=== PATIENT | female | born 1970 | race Caucasian/White ===

== ENCOUNTER 2019-05-23 12:16 | Day surgery (SDC) | payer BC ==
[2019-05-23 13:29] LABS: ADD MAN DIFF? NO
[2019-05-23 13:33] LABS: WHITE BLOOD COUNT 7.7 10^3/ul (4.8-10.8)
[2019-05-23 13:33] LABS: BASOPHILS % 0.3 % (0.0-2.0); EOSINOPHILS % 0.5 % (0.0-7.0); HEMATOCRIT 42.9 % (37.0-47.0); HEMOGLOBIN 13.9 g/dl (12.0-16.0); MEAN CORPUSCULAR HEMOGLOBIN 29.3 pg (29.0-33.0); MEAN CORPUSCULAR HGB CONC 32.4 g/dl (32.0-37.0); MEAN CORPUSCULAR VOLUME 90.5 fl (82.0-101.0); MEAN PLATELET VOLUME 9.8 fl (7.4-10.4); MONOCYTE # 0.5 10^3/ul (0.3-0.9); MONOCYTES % 6.2 % (0.0-11.0); NEUTROPHIL # 5.2 10^3/ul (1.6-7.5); NEUTROPHILS % 66.7 % (39.0-77.0); PLATELET COUNT 219 10^3/UL (140-415); RED BLOOD COUNT 4.74 10^6/ul (4.20-5.40); RED CELL DISTRIBUTION WIDTH 12.3 % (11.5-14.5)
[2019-05-23 14:13] LABS: ANION GAP 6 (5-13); BLOOD UREA NITROGEN 10 mg/dl (7-20); CALCIUM 9.1 mg/dl (8.4-10.2); CARBON DIOXIDE 26 mmol/L (21-31); CHLORIDE 106 mmol/L (97-110); CREATININE 0.77 mg/dl (0.44-1.00); Estimated GFR > 60 mL/min (>60); GLUCOSE 84 mg/dl (70-220); POTASSIUM 4.3 mmol/L (3.5-5.1); SODIUM 138 mmol/L (135-144)
[2019-05-23] MEDS: HEPARIN 5,000 UNIT/1 ML VIAL SC ×2 (15:00→21:03)
[2019-05-23] MEDS: LACTATED RINGER'S 1,000 ML IV ×2 (15:35→18:50)
[2019-05-23] MEDS ORDERED: MIDAZOLAM 1 MG/ML 2 ML INJ (15:38)
[2019-05-23] MEDS ORDERED: morphine SULFATE/PF (10 MG/10 ML) INJ (15:39)
[2019-05-23] MEDS ORDERED: FENTAnyl 50 MCG/ML VIAL (15:39)
[2019-05-23 15:41] LABS: HEMATOCRIT 44.6 % (37.0-47.0); HEMOGLOBIN 14.4 g/dl (12.0-16.0)
[2019-05-23] MEDS: CEFAZOLIN 2 GM/50 ML (PMX) 50 ML IVPB (15:51)
[2019-05-23 16:01] LABS: ANION GAP 5 (5-13); BLOOD UREA NITROGEN 9 mg/dl (7-20); CARBON DIOXIDE 26 mmol/L (21-31); CHLORIDE 106 mmol/L (97-110); CREATININE 0.76 mg/dl (0.44-1.00); Estimated GFR > 60 mL/min (>60); GLUCOSE 79 mg/dl (70-220); POTASSIUM 4.4 mmol/L (3.5-5.1); SODIUM 137 mmol/L (135-144)
[2019-05-23] MEDS ORDERED: BUPIVACAINE 0.25%/EPI (SDV) 10 ML INJ (16:53)
[2019-05-23] MEDS: BUPIVACAINE 0.25%/EPI (SDV) 10 ML INJ (17:44)
[2019-05-23] MEDS ORDERED: FUROSEMIDE 20 MG INJ (18:00)
[2019-05-23 18:06] LABS: INR 0.89; PROTIME 12.1 Sec (11.9-14.9); PT RATIO 0.9
[2019-05-23] MEDS ORDERED: ROCURONIUM 50 MG INJ (18:13)
[2019-05-23] MEDS ORDERED: NEOSTIGMINE 3 MG/3 ML SYRINGE (18:13)
[2019-05-23] MEDS ORDERED: PROPOFOL 20 ML (18:13)
[2019-05-23] MEDS ORDERED: LIDOCAINE 2% (SDV) 5 ML INJ (18:13)
[2019-05-23] MEDS ORDERED: GLYCOPYRROLATE 0.4 MG INJ (18:14)
[2019-05-23] MEDS ORDERED: ONDANSETRON 4 MG INJ (18:14)
[2019-05-23] MEDS ORDERED: CEFAZOLIN 1 GM INJ (18:18)
[2019-05-23 18:24] LABS: PARTIAL THROMBOPLASTIN TIME 27.7 Sec (23.0-35.0)
[2019-05-23] MEDS ORDERED: ACETAMINOPHEN 325 MG TAB PO (19:00)
[2019-05-23] MEDS ORDERED: FENTAnyl 50 MCG/ML VIAL IV (19:00)
[2019-05-23] MEDS ORDERED: MEPERIDINE 25 MG INJ IV (19:00)
[2019-05-23] MEDS ORDERED: DIPHENHYDRAMINE 50 MG INJ IV (19:00)
[2019-05-23] MEDS ORDERED: HYDROmorphONE 1 MG/5 ML IV SYRINGE IV ×2 (19:00)
[2019-05-23] MEDS ORDERED: ONDANSETRON 4 MG INJ IV (19:00)
[2019-05-23] MEDS ORDERED: METOCLOPRAMIDE 10 MG INJ IV (19:00)
[2019-05-23] MEDS: OXYCODONE/ACETAMINOPHEN (5/325) TAB PO (22:23)
[2019-05-24] MEDS: ONDANSETRON 4 MG INJ IV ×2 (01:53→07:47)
[2019-05-24] MEDS: LACTATED RINGER'S 1,000 ML IV (05:48)
[2019-05-24 09:19] LABS: ADD UMIC YES; UR ASCORBIC ACID NEGATIVE (NEGATIVE); UR BILIRUBIN (Dip) NEGATIVE (NEGATIVE); UR BLOOD (Dip) 2+ mg/dL (NEGATIVE); UR CLARITY CLEAR (CLEAR); UR COLOR YELLOW (YELLOW); UR GLUCOSE (Dip) NEGATIVE (NEGATIVE); UR KETONES (Dip) 1+ mg/dL (NEGATIVE); UR LEUKOCYTE ESTERASE (Dip) NEGATIVE Leu/ul (NEGATIVE); UR MUCUS FEW /HPF (NONE SEEN); UR NITRITE (Dip) NEGATIVE (NEGATIVE); UR RBC 56 /HPF (0-5); UR SPECIFIC GRAVITY (Dip) 1.024 (1.003-1.030); UR TOTAL PROTEIN (Dip) NEGATIVE (NEGATIVE); UR UROBILINOGEN (Dip) NEGATIVE (NEGATIVE); UR WBC 4 /HPF (0-5)
[2019-05-24 11:19] LABS: ADD MAN DIFF? NO
[2019-05-24 11:25] LABS: WHITE BLOOD COUNT 11.2 10^3/ul (4.8-10.8)
[2019-05-24 11:25] LABS: BASOPHILS % 0.2 % (0.0-2.0); EOSINOPHILS % 0.2 % (0.0-7.0); HEMATOCRIT 39.9 % (37.0-47.0); HEMOGLOBIN 12.8 g/dl (12.0-16.0); LYMPHOCYTES # 1.9 10^3/ul (0.8-2.9); MEAN CORPUSCULAR HEMOGLOBIN 29.5 pg (29.0-33.0); MEAN CORPUSCULAR HGB CONC 32.1 g/dl (32.0-37.0); MEAN CORPUSCULAR VOLUME 91.9 fl (82.0-101.0); MEAN PLATELET VOLUME 9.7 fl (7.4-10.4); MONOCYTE # 0.6 10^3/ul (0.3-0.9); MONOCYTES % 5.5 % (0.0-11.0); NEUTROPHIL # 8.6 10^3/ul (1.6-7.5); NEUTROPHILS % 76.7 % (39.0-77.0); PLATELET COUNT 206 10^3/UL (140-415); RED BLOOD COUNT 4.34 10^6/ul (4.20-5.40); RED CELL DISTRIBUTION WIDTH 12.4 % (11.5-14.5)
[2019-05-24] MEDS: MAGNESIUM HYDROXIDE 30ML CUP PO (11:58)
== END 2019-05-24 12:09 | disposition home or self-care (01) ==
LOC: MS1 05-24 03:00 → SDS 12:16
DX: N80.3 Endometriosis of pelvic peritoneum (principal); N80.1 Endometriosis of ovary; K66.0 Peritoneal adhesions (postprocedural) (postinfection)
CPT/HCPCS: 58662; 80048; 81001; 84703; 85014; 85018; 85025; 85610; 85730; 86850; 86900; 86901; 87086; 88104; 88304